=== PATIENT | female | born 1955 | race Caucasian/White ===

== ENCOUNTER 2024-10-12 11:47 | Inpatient (IN) | payer MEDICARE, OTHER ==
[~2024-10-12] VITALS: Ht 152.4 cm; Wt 52.2 kg
[2024-10-12 12:15] LABS: BASOPHILS # (AUTO) 0.1 K/uL (0.0-0.2); BASOPHILS % (AUTO) 1.4 % (0.0-2.0); EOSINOPHILS # (AUTO) 0.1 K/uL (0.0-0.7); EOSINOPHILS % (AUTO) 1.1 % (0.0-6.0); HEMATOCRIT 41 % (33-45); LYMPHOCYTES # (AUTO) 0.6 K/uL (0.8-4.8); LYMPHOCYTES % (AUTO) 7.2 % (20.0-44.0); MEAN CORPUSCULAR HEMOGLOBIN 28 PG (26.0-33.0); MEAN CORPUSCULAR HGB CONC 32 g/dl (31.0-36.0); MEAN CORPUSCULAR VOLUME 88 fL (82-100); MONOCYTES # (AUTO) 0.5 K/uL (0.1-1.30); MONOCYTES % (AUTO) 5.5 % (2.0-12.0); NEUTROPHILS # (AUTO) 7.1 K/uL (1.8-8.9); NEUTROPHILS % (AUTO) 84.8 % (43.0-81.0); PLATELET COUNT (AUTO) 300 K/uL (150-450); RED BLOOD CELL COUNT(AUTO) 4.66 MIL/uL (4.0-5.2); RED CELL DISTRIBUTION WIDTH 15.6 % (11.5-15.0); WHITE BLOOD COUNT (AUTO) 8.3 K/uL (4.3-11.0)
[2024-10-12] MEDS: IV NS 0.9% 1,000 ML BAG IV ONE (12:17)
[2024-10-12] MEDS ORDERED: HYDR-4303 PO (12:26)
[2024-10-12] MEDS ORDERED: OLAN5TAB3 PO (12:26)
[2024-10-12] MEDS ORDERED: MELA3TAB41 PO (12:26)
[2024-10-12] MEDS ORDERED: CHOL500052 PO (12:26)
[2024-10-12] MEDS ORDERED: FERR325T24 PO (12:26)
[2024-10-12] MEDS ORDERED: MULT-213 PO (12:26)
[2024-10-12] MEDS ORDERED: ACET325T53 PO (12:26)
[2024-10-12] MEDS ORDERED: SENN-301 PO (12:26)
[2024-10-12] MEDS ORDERED: SENN-261 PO (12:31)
[2024-10-12 12:32] LABS: ALANINE AMINOTRANSFERASE 12 U/L (12-78); ALBUMIN 2.7 g/dL (3.4-5.0); ALKALINE PHOSPHATASE 148 U/L (46-116); ASPARTATE AMINOTRANSFERASE 23 U/L (15-37); BILIRUBIN,DIRECT 0.1 mg/dL (0.0-0.2); BILIRUBIN,TOTAL 0.4 mg/dL (0.2-1.0); CALCIUM, SERUM 9.4 mg/dL (8.5-10.1); CARBON DIOXIDE 21 mmol/L (21-32); CHLORIDE 102 mmol/L (98-107); CREATININE 0.8 mg/dL (0.6-1.3); GLUCOSE 100 mg/dL (74-106); LIPASE 18 U/L (16-77); SODIUM SERUM 137 mmol/L (136-145); TOTAL PROTEIN, SERUM 7.2 g/dL (6.4-8.2); UREA NITROGEN, BLOOD 17 mg/dL (7-18)
[2024-10-12 12:50] LABS: LACTIC ACID 2.4 mmol/L (0.4-2.0)
[2024-10-12] MEDS ORDERED: IOHEXOL-300 100 ML VIAL IV ONE (12:57)
[2024-10-12] MEDS ORDERED: IV NS 0.9% 250 ML IV ONE (12:59)
[2024-10-12] MEDS ORDERED: MAGNESIUM HYDROXIDE 30 ML UDC PO PRN (14:00)
[2024-10-12] MEDS ORDERED: MAG HYDROX/AL HYDROX/SIMETH 30 ML UDC PO PRN (14:00)
[2024-10-12 15:26] LABS: INR 1.14 (0.91-1.10); PARTIAL THROMBOPLASTIN TIME 22.6 SEC (24.3-34.3)
[2024-10-12 16:00] VITALS: BP_SYST 140; BP_SYST 142; BP_DIAS 92; TEMP 97.3; O2SAT 93; O2SAT 95
[2024-10-12] MEDS: SENNOSIDES 8.6 MG TABLET PO SCH (17:03)
[2024-10-12] MEDS: FERROUS SULFATE (325 MG) 325 MG/TAB TABLET PO SCH (17:03)
[2024-10-12] MEDS: ACETAMINOPHEN 325 MG TABLET PO PRN (18:53)
[2024-10-12 20:00] VITALS: BP 143/98; TEMP 97.5; O2SAT 93
[2024-10-13 07:30] VITALS: BP 122/78; TEMP 97.5; O2SAT 93
[2024-10-13 08:02] LABS: BASOPHILS # (AUTO) 0.1 K/uL (0.0-0.2); BASOPHILS % (AUTO) 1.1 % (0.0-2.0); EOSINOPHILS # (AUTO) 0.3 K/uL (0.0-0.7); EOSINOPHILS % (AUTO) 3.4 % (0.0-6.0); HEMATOCRIT 39 % (33-45); HEMOGLOBIN 12.9 g/dL (11.5-14.8); LYMPHOCYTES # (AUTO) 0.6 K/uL (0.8-4.8); LYMPHOCYTES % (AUTO) 7.3 % (20.0-44.0); MEAN CORPUSCULAR HEMOGLOBIN 28 PG (26.0-33.0); MEAN CORPUSCULAR HGB CONC 33 g/dl (31.0-36.0); MEAN CORPUSCULAR VOLUME 86 fL (82-100); MONOCYTES # (AUTO) 0.4 K/uL (0.1-1.30); MONOCYTES % (AUTO) 5.4 % (2.0-12.0); NEUTROPHILS # (AUTO) 6.4 K/uL (1.8-8.9); NEUTROPHILS % (AUTO) 82.8 % (43.0-81.0); PLATELET COUNT (AUTO) 311 K/uL (150-450); RED BLOOD CELL COUNT(AUTO) 4.59 MIL/uL (4.0-5.2); RED CELL DISTRIBUTION WIDTH 15.5 % (11.5-15.0); WHITE BLOOD COUNT (AUTO) 7.8 K/uL (4.3-11.0)
[2024-10-13] MEDS: SPIRONOLACTONE 25 MG TABLET PO SCH (08:21)
[2024-10-13] MEDS: ERGOCALCIFEROL (VITAMIN D 2) 50,000 UNIT CAPSULE PO SCH (08:22)
[2024-10-13] MEDS: FUROSEMIDE 40 MG TABLET PO SCH (08:22)
[2024-10-13] MEDS: MULTIVIT W/MINERALS 1 TAB TABLET PO SCH (08:22)
[2024-10-13 08:34] LABS: APPEARANCE,URINE CLEAR (CLEAR); BILIRUBIN,URINE 1+ (NEGATIVE); BLOOD, URINE NEGATIVE Ery/uL (NEGATIVE); COLOR,URINE YELLOW (YELLOW); KETONES,URINE TRACE mg/dL (NEGATIVE); LEUKOCYTE ESTERASE ,URINE NEGATIVE (NEGATIVE); NITRITE, URINE NEGATIVE (NEGATIVE); PROTEIN,URINE 1+ mg/dl (NEGATIVE); UGLUCOSE NEGATIVE (NEGATIVE); UROBILINOGEN,URINE 0.2 EU/dL (0.2)
[2024-10-13] MEDS: PANTOPRAZOLE 40 MG VIAL IV SCH (08:44)
[2024-10-13] MEDS: OLANZAPINE 5 MG TABLET PO SCH (09:00)
[2024-10-13 09:15] LABS: ADD URINE CULTURE NO; BACTERIA,URINE Few /HPF (None Seen); CALCIUM OXALATE CRYSTALS,UR Moderate /HPF (None Seen); RBC,URINE 0-2 /HPF (0-2)
[2024-10-13 09:26] LABS: CALCIUM, SERUM 9.2 mg/dL (8.5-10.1); CREATININE 0.7 mg/dL (0.6-1.3); MAGNESIUM 1.7 mg/dL (1.8-2.4); PHOSPHORUS 3.7 mg/dL (2.5-4.9); POTASSIUM 3.8 mmol/L (3.5-5.1)
[2024-10-13] MEDS ORDERED: IV NS 0.9% 250 ML IV ONE (09:26)
[2024-10-13] MEDS ORDERED: IOHEXOL-300 100 ML VIAL IV ONE (09:26)
[2024-10-13 16:00] VITALS: BP 102/75; TEMP 97.9; O2SAT 96
[2024-10-13 19:56] LABS: ALBUMIN 2.6 g/dL (3.4-5.0); TOTAL PROTEIN,PERITONEAL FLUID 6.73
[2024-10-13 20:00] VITALS: BP 108/77; TEMP 97.7; O2SAT 97
[2024-10-14 07:41] LABS: BASOPHILS # (AUTO) 0.1 K/uL (0.0-0.2); BASOPHILS % (AUTO) 1.1 % (0.0-2.0); EOSINOPHILS # (AUTO) 0.3 K/uL (0.0-0.7); EOSINOPHILS % (AUTO) 4.9 % (0.0-6.0); HEMATOCRIT 37 % (33-45); HEMOGLOBIN 12.3 g/dL (11.5-14.8); LYMPHOCYTES # (AUTO) 0.8 K/uL (0.8-4.8); LYMPHOCYTES % (AUTO) 11.1 % (20.0-44.0); MEAN CORPUSCULAR HEMOGLOBIN 28 PG (26.0-33.0); MEAN CORPUSCULAR HGB CONC 33 g/dl (31.0-36.0); MEAN CORPUSCULAR VOLUME 86 fL (82-100); MONOCYTES # (AUTO) 0.5 K/uL (0.1-1.30); MONOCYTES % (AUTO) 7.2 % (2.0-12.0); NEUTROPHILS # (AUTO) 5.3 K/uL (1.8-8.9); NEUTROPHILS % (AUTO) 75.7 % (43.0-81.0); PLATELET COUNT (AUTO) 269 K/uL (150-450); RED BLOOD CELL COUNT(AUTO) 4.34 MIL/uL (4.0-5.2); RED CELL DISTRIBUTION WIDTH 15.4 % (11.5-15.0); WHITE BLOOD COUNT (AUTO) 7.1 K/uL (4.3-11.0)
[2024-10-14 08:00] VITALS: BP 109/70; TEMP 97.3; O2SAT 97
[2024-10-14 08:30] LABS: INR 0.98 (0.91-1.10); PARTIAL THROMBOPLASTIN TIME 28.5 SEC (24.3-34.3); PROTHROMBIN TIME 10.4 SECS (9.2-11.1)
[2024-10-14] MEDS: PANTOPRAZOLE 40 MG TABLET.DR PO SCH (08:57)
[2024-10-14 16:00] VITALS: BP 102/67; TEMP 98.4; O2SAT 97
[2024-10-14] MEDS: LOPERAMIDE HCL (2 MG CAP) 2 MG CAPSULE PO PRN (16:26)
[2024-10-14 20:00] VITALS: BP 118/70; TEMP 97.7; O2SAT 93
[2024-10-14 20:15] VITALS: BP 118/70; TEMP 97.7; O2SAT 94
[2024-10-15 01:06] LABS: CARCINOEMBRYONIC ANTIGEN (CEA) 12.8 ng/mL (0.0-4.7)
[2024-10-15 07:00] VITALS: BP 98/59; TEMP 98.2; O2SAT 98
[2024-10-15 08:00] VITALS: BP 138/92; TEMP 97.8; O2SAT 93
[2024-10-15] MEDS: ONDANSETRON HCL/PF 4 MG/2 ML VIAL IVP PRN (09:49)
[2024-10-15 16:00] VITALS: BP 100/63; TEMP 98.6
[2024-10-15 17:09] VITALS: BP 139/90; TEMP 97; O2SAT 88
[2024-10-15 20:00] VITALS: BP 91/65; TEMP 98.2; O2SAT 93
[2024-10-15] MEDS: OLANZAPINE 5 MG TABLET PO SCH (21:09)
[2024-10-15] MEDS: DIVALPROEX SODIUM 125 MG TABLET.DR PO SCH (21:09)
[2024-10-16 08:00] VITALS: BP 131/83; TEMP 98.2; O2SAT 85
[2024-10-16] MEDS: OLANZAPINE 5 MG TABLET PO SCH (08:37)
[2024-10-16 16:00] VITALS: BP 114/70; TEMP 97.9; O2SAT 91
[2024-10-16 20:00] VITALS: BP 97/61; TEMP 98.2; O2SAT 98
[2024-10-16 20:12] VITALS: BP 105/66; O2SAT 97
[2024-10-16 21:57] VITALS: BP 97/61; TEMP 98.2; O2SAT 92
[2024-10-17 06:29] LABS: BASOPHILS # (AUTO) 0.1 K/uL (0.0-0.2); BASOPHILS % (AUTO) 0.7 % (0.0-2.0); EOSINOPHILS # (AUTO) 0.2 K/uL (0.0-0.7); EOSINOPHILS % (AUTO) 2.8 % (0.0-6.0); HEMATOCRIT 36 % (33-45); HEMOGLOBIN 11.6 g/dL (11.5-14.8); LYMPHOCYTES # (AUTO) 0.5 K/uL (0.8-4.8); LYMPHOCYTES % (AUTO) 7.2 % (20.0-44.0); MEAN CORPUSCULAR HEMOGLOBIN 28 PG (26.0-33.0); MEAN CORPUSCULAR HGB CONC 32 g/dl (31.0-36.0); MEAN CORPUSCULAR VOLUME 86 fL (82-100); MONOCYTES # (AUTO) 0.4 K/uL (0.1-1.30); MONOCYTES % (AUTO) 5.1 % (2.0-12.0); NEUTROPHILS # (AUTO) 6.1 K/uL (1.8-8.9); NEUTROPHILS % (AUTO) 84.2 % (43.0-81.0); PLATELET COUNT (AUTO) 215 K/uL (150-450); RED CELL DISTRIBUTION WIDTH 15.5 % (11.5-15.0); WHITE BLOOD COUNT (AUTO) 7.2 K/uL (4.3-11.0)
[2024-10-17 08:35] VITALS: BP 109/76; TEMP 97.7; O2SAT 94
[2024-10-17 16:10] VITALS: BP 123/73; TEMP 97.5; O2SAT 94
== END 2024-10-17 18:11 | DRG 754 ==
LOC: ER 11:56 → MED 13:25
PROVIDERS: ATTEND Nurse Practitioner Acute Care
DX: C76.3 Malignant neoplasm of pelvis (principal); G93.41 Metabolic encephalopathy; E87.20 Acidosis, unspecified; B18.9 Chronic viral hepatitis, unspecified; R18.8 Other ascites; C76.8 Malignant neoplasm of other specified ill-defined sites; K74.60 Unspecified cirrhosis of liver; Z53.20 Procedure and treatment not carried out because of patient's decision for unspecified reasons; R19.09 Other intra-abdominal and pelvic swelling, mass and lump; F20.9 Schizophrenia, unspecified; F31.9 Bipolar disorder, unspecified; I10 Essential (primary) hypertension; Z91.199 Patient's noncompliance with other medical treatment and regimen due to unspecified reason; E88.09 Other disorders of plasma-protein metabolism, not elsewhere classified; J44.9 Chronic obstructive pulmonary disease, unspecified; F29 Unspecified psychosis not due to a substance or known physiological condition; F39 Unspecified mood [affective] disorder; Z73.6 Limitation of activities due to disability; R97.0 Elevated carcinoembryonic antigen [CEA]
CPT/HCPCS: 36415; 71045-TC; 71260-TC; 80048-TC; 80076-TC; 81001; 82040-TC; 82140-TC; 82378; 83605-TC; 83690-TC; 83735-TC; 84100-TC; 85025-TC; 85610-TC; 85730-TC; 86304; 87081-TC; G0378; J2405; J2470; J7050; Q9967

== ENCOUNTER 2024-10-17 18:21 | Inpatient (IN) | payer MEDICARE, OTHER ==
[~2024-10-17] VITALS: Ht 154.9 cm; Wt 51.3 kg
[~2024-10-17 18:21] MED LIST: ACET325T53 PO; CHOL500052 PO; ERGOCALCIFEROL (VITAMIN D 2) 50,000 UNIT CAPSULE PO SCH; FERR325T24 PO; HYDR-4303 PO; MELA3TAB41 PO; MULT-213 PO; OLAN5TAB3 PO; SENN-261 PO
[2024-10-17] MEDS ORDERED: Medication Not On Formulary EA (Melatonin 6 MG) PO PRN (18:30)
[2024-10-17] MEDS ORDERED: ERGOCALCIFEROL (VITAMIN D 2) 50,000 UNIT CAPSULE PO SCH (18:54)
[2024-10-17 20:18] VITALS: BP 134/69; TEMP 98.2; O2SAT 95
[2024-10-17] MEDS ORDERED: MAG HYDROX/AL HYDROX/SIMETH 30 ML UDC PO PRN (21:00)
[2024-10-17] MEDS ORDERED: TEMAZEPAM 7.5 MG CAPSULE PO PRN (21:00)
[2024-10-17] MEDS ORDERED: LORAZEPAM 0.5 MG TABLET PO PRN ×2 (21:00)
[2024-10-17] MEDS ORDERED: MAGNESIUM HYDROXIDE 30 ML UDC PO PRN (21:00)
[2024-10-17] MEDS: BLOOD SUGAR DIAGNOSTIC 1 EACH STRIP IN ONE (21:05)
[2024-10-17 22:18] VITALS: BP 125/70; TEMP 98; O2SAT 98
[2024-10-18] MEDS ORDERED: Z GUARD REMEDY 4 OZ OINT TP PRN (03:30)
[2024-10-18 06:57] LABS: BASOPHILS # (AUTO) 0.1 K/uL (0.0-0.2); BASOPHILS % (AUTO) 0.7 % (0.0-2.0); EOSINOPHILS # (AUTO) 0.2 K/uL (0.0-0.7); EOSINOPHILS % (AUTO) 2.7 % (0.0-6.0); HEMATOCRIT 38 % (33-45); HEMOGLOBIN 12.1 g/dL (11.5-14.8); LYMPHOCYTES # (AUTO) 0.6 K/uL (0.8-4.8); LYMPHOCYTES % (AUTO) 8.2 % (20.0-44.0); MEAN CORPUSCULAR HEMOGLOBIN 27 PG (26.0-33.0); MEAN CORPUSCULAR HGB CONC 32 g/dl (31.0-36.0); MEAN CORPUSCULAR VOLUME 86 fL (82-100); MONOCYTES # (AUTO) 0.4 K/uL (0.1-1.30); MONOCYTES % (AUTO) 5.5 % (2.0-12.0); NEUTROPHILS # (AUTO) 5.8 K/uL (1.8-8.9); NEUTROPHILS % (AUTO) 82.9 % (43.0-81.0); PLATELET COUNT (AUTO) 229 K/uL (150-450); RED BLOOD CELL COUNT(AUTO) 4.41 MIL/uL (4.0-5.2); RED CELL DISTRIBUTION WIDTH 15.8 % (11.5-15.0)
[2024-10-18 07:59] LABS: CALCIUM, SERUM 8.7 mg/dL (8.5-10.1); CREATININE 0.7 mg/dL (0.6-1.3); POTASSIUM 3.8 mmol/L (3.5-5.1)
[2024-10-18 08:00] VITALS: BP 138/87; TEMP 97.7; O2SAT 95
[2024-10-18] MEDS: Z GUARD REMEDY 4 OZ OINT TP SCH (11:01)
[2024-10-18] MEDS: SPIRONOLACTONE 25 MG TABLET PO SCH (11:01)
[2024-10-18] MEDS: FERROUS SULFATE (325 MG) 325 MG/TAB TABLET PO SCH (11:01)
[2024-10-18] MEDS: MULTIVIT W/MINERALS 1 TAB TABLET PO SCH (11:01)
[2024-10-18] MEDS: LACTULOSE 10 G/15 ML UDC (PYXIS) PO SCH (11:02)
[2024-10-18] MEDS: OLANZAPINE 5 MG TABLET PO SCH (15:14)
[2024-10-18] MEDS: HYDROCODONE/APAP 5/325MG TABLET PO PRN (15:15)
[2024-10-18 16:00] VITALS: BP 124/83; TEMP 97.5; O2SAT 94
[2024-10-18] MEDS: SENNOSIDES 8.6 MG TABLET PO SCH (17:31)
[2024-10-18 20:36] VITALS: BP_SYST 103; BP_SYST 99; BP_DIAS 70; TEMP 98.1; O2SAT 94
[2024-10-19 08:44] VITALS: BP 104/76; TEMP 97.6; O2SAT 93
[2024-10-19 16:00] VITALS: BP 110/68; TEMP 97.8; O2SAT 97
[2024-10-19] MEDS: ACETAMINOPHEN 325 MG TABLET PO PRN (17:52)
[2024-10-19] MEDS: TEMAZEPAM 7.5 MG CAPSULE PO PRN (19:49)
[2024-10-19 20:43] VITALS: BP 137/80; TEMP 98.2; O2SAT 99
[2024-10-20 08:00] VITALS: BP 129/81; TEMP 97.8; O2SAT 96
[2024-10-20 16:00] VITALS: BP 101/67; TEMP 97.7; O2SAT 95
[2024-10-20 20:00] VITALS: BP 119/79; TEMP 97.7; O2SAT 94
[2024-10-21 08:00] VITALS: BP 121/91; TEMP 97.6; O2SAT 100
[2024-10-21 16:17] VITALS: BP_SYST 139; BP_SYST 95; BP_DIAS 67; BP_DIAS 78; TEMP 97.7; TEMP 97.8; O2SAT 97; O2SAT 98
[2024-10-21 21:28] VITALS: BP 129/84; TEMP 97.9; O2SAT 96
[2024-10-22 08:00] VITALS: BP 116/77; TEMP 98.1; O2SAT 98
[2024-10-22] MEDS: OLANZAPINE 5 MG TABLET PO SCH (08:41)
[2024-10-22] MEDS: ACETAMINOPHEN 325 MG TABLET PO PRN (10:15)
[2024-10-22 16:13] VITALS: BP 112/73; TEMP 98.2; O2SAT 95
[2024-10-22 20:07] VITALS: BP 115/73; TEMP 97.9; O2SAT 95
[2024-10-23 08:00] VITALS: BP 118/81; TEMP 97.5; O2SAT 95
[2024-10-23 16:00] VITALS: BP 121/87; TEMP 97.5; O2SAT 95
[2024-10-23 20:49] VITALS: BP 92/65; TEMP 97.5; O2SAT 91
[2024-10-24 06:01] VITALS: BP 92/65; TEMP 97.5; O2SAT 95
[2024-10-24 08:00] VITALS: BP 101/73; TEMP 97.9; O2SAT 98
[2024-10-24] MEDS: ESCITALOPRAM OXALATE (10 MG) 10 MG TABLET PO SCH (09:51)
[2024-10-24 16:00] VITALS: BP 127/81; TEMP 97.9; O2SAT 96
[2024-10-24 20:13] VITALS: BP 104/69; TEMP 98.2; O2SAT 96
[2024-10-25 08:00] VITALS: BP 114/75; TEMP 97.9; O2SAT 100
[2024-10-25 16:00] VITALS: BP 126/78; TEMP 97.8; O2SAT 97
[2024-10-25 20:35] VITALS: BP 122/69; TEMP 98.1; O2SAT 96
[2024-10-26 08:00] VITALS: BP 114/76; TEMP 98.6; O2SAT 96
[2024-10-26 16:07] VITALS: BP 110/68; TEMP 98.8; O2SAT 93
[2024-10-26 20:16] VITALS: BP 117/70; TEMP 97.9; O2SAT 95
[2024-10-27 08:00] VITALS: BP 140/69; TEMP 97.5; O2SAT 93
[2024-10-27] MEDS: ESCITALOPRAM OXALATE (10 MG) 10 MG TABLET PO SCH (08:27)
[2024-10-27] MEDS: HYDROCORTISONE ACETATE 25 MG/SUPP.RECT SUPP.RECT RC SCH (11:00)
[2024-10-27 15:42] VITALS: BP 109/71; TEMP 97.5; O2SAT 95
[2024-10-27 16:00] VITALS: BP 109/71; TEMP 97.5; O2SAT 95
[2024-10-27 20:09] VITALS: BP 102/67; TEMP 97.5; O2SAT 95
[2024-10-27] MEDS: MIRTAZAPINE 15 MG TABLET PO SCH (22:10)
[2024-10-28 08:00] VITALS: BP 121/75; TEMP 97.7; O2SAT 98
[2024-10-28 16:00] VITALS: BP 96/63; TEMP 98.1; O2SAT 92
[2024-10-28 18:22] VITALS: BP 108/65; TEMP 98.1; O2SAT 94
[2024-10-28 20:24] VITALS: BP 129/82; TEMP 98.1; O2SAT 94
[2024-10-29 08:00] VITALS: BP 110/67; TEMP 97.7; O2SAT 94
[2024-10-29 12:29] LABS: BASOPHILS % (AUTO) 0.6 % (0.0-2.0); EOSINOPHILS # (AUTO) 0.1 K/uL (0.0-0.7); EOSINOPHILS % (AUTO) 0.7 % (0.0-6.0); HEMATOCRIT 44 % (33-45); HEMOGLOBIN 13.4 g/dL (11.5-14.8); LYMPHOCYTES # (AUTO) 0.5 K/uL (0.8-4.8); LYMPHOCYTES % (AUTO) 5.7 % (20.0-44.0); MEAN CORPUSCULAR HEMOGLOBIN 28 PG (26.0-33.0); MEAN CORPUSCULAR HGB CONC 31 g/dl (31.0-36.0); MEAN CORPUSCULAR VOLUME 92 fL (82-100); MONOCYTES # (AUTO) 0.3 K/uL (0.1-1.30); MONOCYTES % (AUTO) 3.9 % (2.0-12.0); NEUTROPHILS # (AUTO) 7.1 K/uL (1.8-8.9); NEUTROPHILS % (AUTO) 89.1 % (43.0-81.0); PLATELET COUNT (AUTO) 234 K/uL (150-450); RED BLOOD CELL COUNT(AUTO) 4.77 MIL/uL (4.0-5.2); RED CELL DISTRIBUTION WIDTH 18.4 % (11.5-15.0)
[2024-10-29 12:42] LABS: CALCIUM, SERUM 9.4 mg/dL (8.5-10.1); CREATININE 0.7 mg/dL (0.6-1.3); MAGNESIUM 1.8 mg/dL (1.8-2.4)
[2024-10-29] MEDS: FUROSEMIDE 40 MG TABLET PO SCH (13:07)
[2024-10-29 13:43] LABS: INR 0.97 (0.91-1.10); PROTHROMBIN TIME 10.3 SECS (9.2-11.1)
[2024-10-29 16:04] VITALS: BP 113/74; TEMP 98.1; O2SAT 95
[2024-10-29 20:10] VITALS: BP 106/64; TEMP 98.2; O2SAT 96
[2024-10-30 08:00] VITALS: BP 114/75; TEMP 98; O2SAT 95
[2024-10-30 16:00] VITALS: BP 112/69; TEMP 98.7; O2SAT 99
[2024-10-30 20:00] VITALS: BP 114/68; TEMP 97.5; O2SAT 92
[2024-10-31 08:00] VITALS: BP 116/63; TEMP 98; O2SAT 95
[2024-10-31] MEDS: OLANZAPINE 5 MG TABLET PO SCH (08:44)
[2024-10-31 09:56] VITALS: TEMP 98
== END 2024-10-31 12:30 | DRG 885 ==
LOC: GPS 18:21
PROVIDERS: ADMIT Registered Nurse; ATTEND Nurse Practitioner Acute Care
DX: F25.0 Schizoaffective disorder, bipolar type (principal); E43 Unspecified severe protein-calorie malnutrition; G93.41 Metabolic encephalopathy; B18.9 Chronic viral hepatitis, unspecified; R18.8 Other ascites; E88.09 Other disorders of plasma-protein metabolism, not elsewhere classified; I10 Essential (primary) hypertension; K74.60 Unspecified cirrhosis of liver; C76.3 Malignant neoplasm of pelvis; Z73.6 Limitation of activities due to disability; F29 Unspecified psychosis not due to a substance or known physiological condition; F39 Unspecified mood [affective] disorder; J44.9 Chronic obstructive pulmonary disease, unspecified; Z91.199 Patient's noncompliance with other medical treatment and regimen due to unspecified reason; Z68.21 Body mass index [BMI] 21.0-21.9, adult; Z53.29 Procedure and treatment not carried out because of patient's decision for other reasons; R97.0 Elevated carcinoembryonic antigen [CEA]; R97.1 Elevated cancer antigen 125 [CA 125]
CPT/HCPCS: 36415; 76705-TC; 80048-TC; 80061-TC; 82140-TC; 83735-TC; 85025-TC; 85610-TC; 87081-TC; 97110-TC; 97116-TC; 97530-TC

== ENCOUNTER 2024-12-22 12:23 | Inpatient (IN) | payer MEDICARE, OTHER ==
[~2024-12-22] VITALS: Ht 157.5 cm; Wt 34.0 kg
[~2024-12-22 12:23] MED LIST changes: -ERGOCALCIFEROL (VITAMIN D 2) 50,000 UNIT CAPSULE PO SCH; -MELA3TAB41 PO; -OLAN5TAB3 PO
[2024-12-22] MEDS ORDERED: ERGO500093 PO (13:06)
[2024-12-22] MEDS ORDERED: OLAN7.5T3 PO (13:06)
[2024-12-22] MEDS ORDERED: MAGN400O6 PO (13:06)
[2024-12-22] MEDS ORDERED: LACT10SO29 PO (13:06)
[2024-12-22] MEDS ORDERED: MAG-55 PO (13:06)
[2024-12-22] MEDS ORDERED: SENN-86 PO (13:06)
[2024-12-22] MEDS ORDERED: MIRT-90 PO (13:06)
[2024-12-22] MEDS ORDERED: FURO40TA5 PO (13:06)
[2024-12-22] MEDS ORDERED: SPIR25TA6 PO (13:06)
[2024-12-22] MEDS ORDERED: ESCI10TA PO (13:06)
[2024-12-22 13:26] LABS: PLATELET COUNT (AUTO) 276 K/uL (150-450); RED BLOOD CELL COUNT(AUTO) 4.90 MIL/uL (4.0-5.2); RED CELL DISTRIBUTION WIDTH 20.6 % (11.5-15.0); WHITE BLOOD COUNT (AUTO) 8.0 K/uL (4.3-11.0)
[2024-12-22 13:40] LABS: CALCIUM, SERUM 8.9 mg/dL (8.5-10.1); CREATININE 0.8 mg/dL (0.6-1.3); SODIUM SERUM 140.0 mmol/L (136-145); UREA NITROGEN, BLOOD 27.0 mg/dL (7-18)
[2024-12-22 13:43] LABS: ASPARTATE AMINOTRANSFERASE 35.0 U/L (15-37); TOTAL PROTEIN, SERUM 7.4 g/dL (6.4-8.2)
[2024-12-22 13:49] LABS: INR 0.97 (0.91-1.10)
[2024-12-22 14:30] VITALS: BP 126/90; TEMP 97.5; O2SAT 94
[2024-12-22] MEDS ORDERED: Z GUARD REMEDY 4 OZ OINT TP PRN (15:30)
[2024-12-22] MEDS ORDERED: HYDROCODONE/APAP 5/325MG TABLET PO PRN (15:30)
[2024-12-22] MEDS ORDERED: ONDANSETRON HCL/PF 4 MG/2 ML VIAL IVP PRN (15:30)
[2024-12-22] MEDS ORDERED: MAGNESIUM HYDROXIDE 30 ML UDC PO PRN ×2 (15:30)
[2024-12-22] MEDS ORDERED: MAG HYDROX/AL HYDROX/SIMETH 30 ML UDC PO PRN ×2 (15:30→16:00)
[2024-12-22] MEDS ORDERED: ACETAMINOPHEN 325 MG TABLET PO PRN (15:30)
[2024-12-22 16:00] VITALS: BP 104/86; TEMP 97.9; O2SAT 94
[2024-12-22] MEDS: FERROUS SULFATE (325 MG) 325 MG/TAB TABLET PO SCH (16:13)
[2024-12-22] MEDS: LACTULOSE 10 G/15 ML UDC (PYXIS) PO SCH (16:13)
[2024-12-22] MEDS: OLANZAPINE 2.5 MG TABLET PO SCH (16:13)
[2024-12-22] MEDS: ACETAMINOPHEN 325 MG TABLET PO PRN (16:28)
[2024-12-22] MEDS: SENNOSIDES/DOCUSATE SODIUM 1 TAB TABLET PO SCH (17:29)
[2024-12-22] MEDS: MIRTAZAPINE 15 MG TABLET PO SCH (21:03)
[2024-12-22] MEDS: ZOLPIDEM TARTRATE 5 MG TABLET PO PRN (22:17)
[2024-12-23 06:42] LABS: PLATELET COUNT (AUTO) 238 K/uL (150-450); RED BLOOD CELL COUNT(AUTO) 4.60 MIL/uL (4.0-5.2); RED CELL DISTRIBUTION WIDTH 19.9 % (11.5-15.0); WHITE BLOOD COUNT (AUTO) 8.9 K/uL (4.3-11.0)
[2024-12-23 06:44] LABS: SERUM AMMONIA 8.0 umol/L (11-32)
[2024-12-23 06:56] LABS: CALCIUM, SERUM 9.0 mg/dL (8.5-10.1); CREATININE 0.7 mg/dL (0.6-1.3); PHOSPHORUS 2.8 mg/dL (2.5-4.9); SODIUM SERUM 142.0 mmol/L (136-145); UREA NITROGEN, BLOOD 26.0 mg/dL (7-18)
[2024-12-23 08:00] VITALS: BP 121/86; TEMP 97.9; O2SAT 94
[2024-12-23] MEDS: MULTIVIT W/MINERALS 1 TAB TABLET PO SCH (09:04)
[2024-12-23] MEDS: SPIRONOLACTONE 25 MG TABLET PO SCH (09:04)
[2024-12-23] MEDS: FUROSEMIDE 40 MG TABLET PO SCH (09:04)
[2024-12-23] MEDS: ESCITALOPRAM OXALATE (10 MG) 10 MG TABLET PO SCH (09:04)
[2024-12-23] MEDS: PANTOPRAZOLE 40 MG TABLET.DR PO SCH (09:08)
[2024-12-23 16:00] VITALS: BP 105/69; TEMP 98.1; O2SAT 92
[2024-12-23 23:12] LABS: PROTEIN, BODY FLUID 3.0 G/DL
[2024-12-23 23:31] VITALS: BP 105/68; TEMP 97.5; O2SAT 93
[2024-12-23 23:55] LABS: APPEARANCE,SPUN,BODY FLUID CLEAR (CLEAR)
[2024-12-23 23:56] LABS: MACROPHAGES, BODY FLUID 7; MONOCYTES,BODY FLUID 12 %; TOTAL VOLUME,BODY FLUID 1000 mL; WBC, BODY FLUID 225 /cu. mm. (0-200)
[2024-12-24 04:00] VITALS: BP 119/75; TEMP 98.1; O2SAT 91
[2024-12-24 08:00] VITALS: BP 96/75; TEMP 98; O2SAT 93
[2024-12-24 08:02] LABS: RED BLOOD CELL COUNT(AUTO) 4.50 MIL/uL (4.0-5.2); WHITE BLOOD COUNT (AUTO) 7.2 K/uL (4.3-11.0)
[2024-12-24 08:03] LABS: PLATELET COUNT (AUTO) 171 K/uL (150-450); RED CELL DISTRIBUTION WIDTH 20.2 % (11.5-15.0)
[2024-12-24 09:06] LABS: CALCIUM, SERUM 9.0 mg/dL (8.5-10.1); CREATININE 0.8 mg/dL (0.6-1.3); PHOSPHORUS 2.5 mg/dL (2.5-4.9); SODIUM SERUM 144.0 mmol/L (136-145); UREA NITROGEN, BLOOD 22.0 mg/dL (7-18)
[2024-12-24] MEDS ORDERED: ALBUMIN 25% 12.5 GM/50 ML BOTTLE IV ONE (11:30)
[2024-12-24] MEDS: ALBUMIN 25% 25 GM in PREMIX 1 EA IV ONE (12:00)
[2024-12-24] MEDS: MIDODRINE HCL (5MG) 5 MG TABLET PO ONE (15:02)
[2024-12-24 16:00] VITALS: BP 91/63; TEMP 97.9; O2SAT 92
[2024-12-24 20:00] VITALS: BP 96/63; TEMP 98.1; O2SAT 92
[2024-12-25 04:00] VITALS: BP 96/61; TEMP 98.2; O2SAT 92
[2024-12-25 06:35] LABS: PLATELET COUNT (AUTO) 170 K/uL (150-450); RED BLOOD CELL COUNT(AUTO) 4.13 MIL/uL (4.0-5.2); RED CELL DISTRIBUTION WIDTH 19.9 % (11.5-15.0); WHITE BLOOD COUNT (AUTO) 8.0 K/uL (4.3-11.0)
[2024-12-25 06:50] LABS: CALCIUM, SERUM 8.8 mg/dL (8.5-10.1); CREATININE 0.6 mg/dL (0.6-1.3); PHOSPHORUS 2.4 mg/dL (2.5-4.9); SODIUM SERUM 143.0 mmol/L (136-145); UREA NITROGEN, BLOOD 18.0 mg/dL (7-18)
[2024-12-25] MEDS: MUPIROCIN OINT 2% 22 GM TUBE NS SCH (08:27)
[2024-12-25 10:07] LABS: FOLIC ACID 3.9 ng/mL (>3.0)
[2024-12-25] MEDS: MAGNESIUM OXIDE 400 MG TABLET PO ONE (10:07)
[2024-12-25 12:00] VITALS: BP 94/60; TEMP 98.1; O2SAT 91
[2024-12-25 13:59] LABS: INR 0.97 (0.91-1.10)
[2024-12-25] MEDS: K PHOS NEUTRAL 250 MG TABLET PO ONE (17:01)
[2024-12-25] MEDS ORDERED: ALBUMIN 25% 12.5 GM/50 ML BOTTLE IV ONE (18:30)
[2024-12-25] MEDS: ALBUMIN 25% 25 GM in PREMIX 1 EA IV ONE ×2 (18:40→21:35)
[2024-12-25 20:00] VITALS: BP 86/47; TEMP 98.4; O2SAT 92
[2024-12-25] MEDS ORDERED: ALBUMIN 25% 100 ML IV ONE (21:33)
[2024-12-25 22:23] VITALS: BP 92/56
[2024-12-26 04:00] VITALS: BP 103/63; TEMP 97.9; O2SAT 94
[2024-12-26] MEDS ORDERED: MUPI22OI7 TP (10:45)
[2024-12-26 12:00] VITALS: BP 110/74; TEMP 98; O2SAT 94
[2024-12-27 11:07] LABS: METHYLMALONIC ACID 668.0 nmol/L (0-378)
[2024-12-28 21:07] LABS: VITAMIN B1 THIAMINE,WB 127.7 nmol/L (66.5-200.0)
== END 2024-12-26 14:21 | DRG 432 ==
LOC: ER 12:37 → MEDSG1 13:40
PROVIDERS: ADMIT Student in an Organized Health Care Education/Training Program; ATTEND Nurse Practitioner Family
PROC: 0W9G3ZZ Drainage of Peritoneal Cavity, Percutaneous Approach (ICD-10-PCS; principal; 2024-12-23)
PROC: 0W9G3ZZ Drainage of Peritoneal Cavity, Percutaneous Approach (ICD-10-PCS; 2024-12-25)
DX: K74.60 Unspecified cirrhosis of liver (principal); G93.41 Metabolic encephalopathy; R18.8 Other ascites; E44.0 Moderate protein-calorie malnutrition; B18.9 Chronic viral hepatitis, unspecified; Z68.1 Body mass index [BMI] 19.9 or less, adult; E86.0 Dehydration; R19.09 Other intra-abdominal and pelvic swelling, mass and lump; E88.09 Other disorders of plasma-protein metabolism, not elsewhere classified; F20.9 Schizophrenia, unspecified; Z86.73 Personal history of transient ischemic attack (TIA), and cerebral infarction without residual deficits; J44.9 Chronic obstructive pulmonary disease, unspecified; L85.3 Xerosis cutis; F39 Unspecified mood [affective] disorder; R56.9 Unspecified convulsions; Z91.199 Patient's noncompliance with other medical treatment and regimen due to unspecified reason; I10 Essential (primary) hypertension; F31.9 Bipolar disorder, unspecified; L89.151 Pressure ulcer of sacral region, stage 1; L89.226 Pressure-induced deep tissue damage of left hip; S70.02XA Contusion of left hip, initial encounter; X58.XXXA Exposure to other specified factors, initial encounter; Y93.9 Activity, unspecified; Y92.129 Unspecified place in nursing home as the place of occurrence of the external cause; W34.00XS Accidental discharge from unspecified firearms or gun, sequela; Z98.890 Other specified postprocedural states
CPT/HCPCS: 36415; 49083; 70450-TC; 80048-TC; 80076-TC; 82105; 82140-TC; 82607-TC; 83735-TC; 83921; 84100-TC; 84425; 84443-TC; 85025-TC; 85610-TC; 85730-TC; 87070-TC; 87075-TC; 87081-TC; 89051-TC; A4216; A4223; A6253; G0378; J7050; P9047